=== PATIENT | female | born 1985 | race Caucasian/White ===

== ENCOUNTER 2016-07-06 16:04 | Outpatient (CLI) | payer MEDICAID | END 2016-07-06 16:05 | disposition home or self-care (01) | DX: R07.89 Other chest pain (principal) ==

== ENCOUNTER 2016-08-10 09:57 | Outpatient (CLI) | payer MEDICAID | END 2016-08-10 09:58 | disposition home or self-care (01) | LOC: SC 09:57 | PROVIDERS: ATTEND Nurse Practitioner Family | DX: G47.8 Other sleep disorders (principal); G47.10 Hypersomnia, unspecified; R06.83 Snoring | CPT/HCPCS: 99204; 99212 ==

== ENCOUNTER 2016-09-20 19:29 | Outpatient (CLI) | payer MEDICAID | END 2016-09-20 19:30 | disposition home or self-care (01) | LOC: SC 19:29 | PROVIDERS: ATTEND Internal Medicine Pulmonary Disease | DX: G47.10 Hypersomnia, unspecified (principal); R06.83 Snoring | CPT/HCPCS: 95810 ==

== ENCOUNTER 2017-10-25 11:24 | Outpatient (CLI) | payer BC ==
[2017-10-25 18:01] LABS: HB2 TOTAL 16.6 g/dL; HEMOGLOBIN A1C 0.45 g/dL; HEMOGLOBIN A1C % 4.6 % (4.6-6.2)
[2017-10-25 18:07] LABS: CHOL/HDL RATIO 3.6 (<4.4); CHOLESTEROL 238 mg/dL; GLUCOSE 93 mg/dL (70-100); HDL CHOLESTEROL 66 mg/dL; LDL CHOLESTEROL,CALCULATED 155 mg/dL; LDL/HDL RATIO 2.3 (<4.4); VLDL CHOLESTEROL 17 mg/dL
== END 2017-10-25 11:25 | disposition home or self-care (01) ==
LOC: LAB.F 11:24
PROVIDERS: ATTEND Registered Nurse
DX: Z01.419 Encounter for gynecological examination (general) (routine) without abnormal findings (principal)
CPT/HCPCS: 36415; 80061; 82947; 83036; 83721; 84443

== ENCOUNTER 2019-02-06 13:09 | Outpatient (CLI) | payer OTHER ==
--- NOTE | 2019-02-07 10:41 | XRAY Report ---
Reason: ASTHMA, J45.909 Procedure Date: 02/06/2019 Accession Number: [id number] / [id number] Procedure: XRS - Chest 2 View X-Ray CPT Code: 56655 Final Report FULL RESULT: EXAM: CHEST RADIOGRAPHY EXAM DATE: 02/06/2019 01:22 PM. CLINICAL HISTORY: ASTHMA, J45. 909. COMPARISON: None. TECHNIQUE: 2 views. FINDINGS: Lungs/Pleura: Bilateral central bronchial wall thickening is noted. No superimposed focal airspace consolidation. No pleural effusion or pneumothorax. Mediastinum: Heart and mediastinal contours are unremarkable. Other: None. IMPRESSION: 1. Bilateral central bronchial wall thickening could reflect underlying reactive airways or bronchitis. No evidence of pneumonia. RADIA
== END 2019-02-06 13:10 | disposition home or self-care (01) ==
LOC: DI.S 13:09
PROVIDERS: ATTEND Registered Nurse
DX: J45.909 Unspecified asthma, uncomplicated (principal)
CPT/HCPCS: 71046

== ENCOUNTER 2019-04-23 07:00 | Outpatient (CLI) | payer BC, OTHER ==
[2019-04-23 21:50] LABS: TRICHOMONAS VAGINALIS DNA NEGATIVE (NEGATIVE)
== END 2019-04-23 23:59 | disposition home or self-care (01) ==
LOC: LAB.R 07:00
PROVIDERS: ATTEND Nurse Practitioner Obstetrics & Gynecology
DX: Z11.3 Encounter for screening for infections with a predominantly sexual mode of transmission (principal)
CPT/HCPCS: 87491; 87591; 87661

== ENCOUNTER 2020-05-12 04:04 | Emergency (ER) | payer OTHER ==
--- NOTE | 2020-05-12 04:10 | ED Physician Documentation ---
PD HPI DYSPNEA - Stated complaint Stated Complaint: SOA - History obtained from History obtained from: Patient - History of Present Illness Timing - onset: How many days ago (2) Timing - details: Gradual onset, Waxing and waning Pain level max: 0 Pain level now: 0 Improved by: Rest Worsened by: Exertion, Coughing Associated symptoms: Cough, Wheezing. No: Fever, Chest pain / discomfort, Bilateral edema, Unilateral edema Similar symptoms before: Diagnosis (asthma) Recently seen: Clinic - Additional information Additional information: c/o 1-2 days of gradual onset, gradually worsening dyspnea, wheezing, and productive cough. She says she had similar symptoms approximately 1 year ago and went through two rounds of antibiotics, eventually evaluated by an switch adjuster and diagnosed with asthma. She says the switch adjuster performed allergy tests which also indicated allergy to several environmental allergens. Patient was evaluated at a walk-in clinic yesterday, prescribed an inhaler and a steroid. She has been using the inhaler without adequate improvement. She did not start the steroid yet; she says the pharmacist advised her to wait until the morning, as it might cause insomnia. Patient denies fever, myalgias. Review of Systems Constitutional: denies: Fever, Chills, Myalgias, Sweats Cardiac: denies: Chest pain / pressure, Palpitations, Pedal edema Respiratory: reports: Dyspnea, Cough, Wheezing PD PAST MEDICAL HISTORY - Past Medical History Cardiovascular: None Respiratory: None Endocrine/Autoimmune: None GI: None ACID CONCENTRATOR: None : None HEENT: None Psych: Depression, Anxiety, Bipolar disorder Musculoskeletal: None Derm: None - Past Surgical History Past Surgical History: Yes - Present Medications Home Medications: Ambulatory Orders Medication Instructions Recorded Confirmed Nexplanon 02/06/16 ARIPiprazole [Aripiprazole Odt] 15 mg PO DAILY 05/12/20 05/12/20 Albuterol Sulfate [Proair 2 puffs IH Q4HR PRN 05/12/20 05/12/20 Digihaler] Azithromycin [Zithromax] 250 mg PO DAILY #4 tab 05/12/20 Montelukast Sodium 10 mg PO DAILY 05/12/20 05/12/20 Omeprazole Magnesium 20 mg PO DAILY 05/12/20 05/12/20 - Allergies Allergies/Adverse Reactions: Allergies Allergy/AdvReac Type Severity Reaction Status Date / Time No Known Drug Allergies Allergy Verified 05/12/20 04:18 - Social History Does the pt smoke?: No Smoking Status: Never smoker Does the pt drink ETOH?: Yes Does the pt have substance abuse?: No - Immunizations Immunizations are current?: Yes - POLST Patient has POLST: No PD ED PE NORMAL - Vitals Vital signs reviewed: Yes - General General: Alert and oriented X 3, Well developed/nourished, Other (dyspneic, tachypneic, grossly audible wheezing. able to speak 2-3 words at a time due to dyspnea) - HEENT HEENT: Moist mucous membranes - Neck Neck: Supple, no meningeal sign, No JVD - Cardiac Cardiac: No murmur PD ED PE EXPANDED - Cardiac Cardiac: Tachy, Regular Rhythm - Respiratory Respiratory: Wheezing (inspiratory and expiratory), Decreased breath sounds Results - Vitals Vitals: Vital Signs - 24 hr 05/12/20 05/12/20 05/12/20 04:05 04:21 04:31 Temperature 36.6 C Heart Rate 120 H 115 H 123 H Respiratory 32 H 15 16 Rate Blood Pressure 150/115 H 134/83 H O2 Saturation 96 97 05/12/20 05/12/20 05/12/20 04:44 05:02 05:14 Temperature 36.6 C 36.8 C Heart Rate 101 H 101 H 100 Respiratory 23 22 24 Rate Blood Pressure 137/98 H 113/88 H O2 Saturation 97 97 05/12/20 05/12/20 05/12/20 05:30 06:00 06:20 Temperature 36.7 C 36.7 C 36.6 C Heart Rate 118 H 104 H 103 H Respiratory 21 22 24 Rate Blood Pressure 131/94 H 147/85 H 139/93 H O2 Saturation 96 97 98 Oxygen O2 Source Room air - Labs Labs: Laboratory Tests 05/12/20 05/12/20 05/12/20 04:14 04:14 05:47 WBC 9.5 RBC 4.52 Hgb 15.7 Hct 45.4 MCV 100.4 H MCH 34.7 H MCHC 34.6 RDW 12.1 Plt Count 293 MPV 9.4 Neut # (Auto) 5.8 Lymph # (Auto) 2.2 Aiken # (Auto) 0.6 Eos # (Auto) 0.9 H Baso # (Auto) 0.0 Absolute Nucleated RBC 0.00 Nucleated RBC % 0.0 Sodium 138 Potassium 3.3 L Chloride 105 Carbon Dioxide 22 Anion Gap 11.0 BUN 8 Creatinine 0.9 Estimated GFR (MDRD) 72 L Glucose 107 H Calcium 9.1 Nasal Adenovirus (PCR) NOT DETECTED Nasal B. parapertussis DNA (PCR) NOT DETECTED Nasal Coronavir 229E PCR NOT DETECTED Nasal Coronavir HKU1 PCR NOT DETECTED Nasal Coronavir NL63 PCR NOT DETECTED Nasal Coronavir OC43 PCR NOT DETECTED Nasal Enterovir/Rhinovir PCR NOT DETECTED Nasal Influenza B PCR NOT DETECTED Nasal Influenza A PCR NOT DETECTED Nasal Parainfluen 1 PCR NOT DETECTED Nasal Parainfluen 2 PCR NOT DETECTED Nasal Parainfluen 3 PCR NOT DETECTED Nasal Parainfluen 4 PCR NOT DETECTED Nasal RSV (PCR) NOT DETECTED Nasal B.pertussis DNA PCR NOT DETECTED Nasal C.pneumoniae (PCR) NOT DETECTED Shane Human Metapneumo PCR NOT DETECTED Nasal M.pneumoniae (PCR) NOT DETECTED Nasal SARS-CoV-2 (PCR) NOT DETECTED - Rads (name of study) chest xray Radiology: Prelim report reviewed, See rad report PD MEDICAL DECISION MAKING - ED course Complexity details: reviewed results, re-evaluated patient, considered differential, d/w patient ED course: patient reports substantial improvement after duoneb. also given IV solu-medrol 125mg. She no longer has the wheezing that was audible when I was standing at bedside. On auscultation, she has persistent expiratory wheezing, mild inspiratory wheezing, but improved aeration (breath sounds are no longer distant). She is able to speak in full sentences without difficulty. She is given a second neb treatment (albuterol) and reported further improvement with this although no noticeable change on auscultation. CXR interpreted by radiologist as interstitial RLL infiltrate and thus she is also given IV rocephin and PO zithromax with rx for zithromax. She is comfortable with d/c home. Given a work note and instructed to take the steroids that had already been prescribed starting today around mid-day or early afternoon. Departure - Departure Disposition: Home, Self Care Clinical Impression: Pneumonia Qualifiers: Pneumonia type: due to unspecified organism Laterality: right Lung location: lower lobe of lung Qualified Code(s): J18.9 - Pneumonia, unspecified organism Asthma attack Qualifiers: Asthma severity: moderate Asthma persistence: unspecified Qualified Code(s): J45.901 - Unspecified asthma with (acute) exacerbation Condition: Good Instructions: ED Reactive Airway Disease, ED Pneumonia Adult Prescriptions: Azithromycin [Zithromax] 250 mg PO DAILY #4 tab Comments: Take the steroid (which you have indicated was already prescribed) starting with the first dose to be taken around noon today (then as indicated by the instructions on the prescription label). Take your next dose of azithromycin (the antibiotic prescribed from this emergency department) tomorrow morning (you were given an initial dose in the emergency department). Forms: Activity restrictions Discharge Date/Time: 05/12/20 06:22
[2020-05-12] MEDS ORDERED: IPRATROPIUM/ALBUTEROL 3 ML NEB INH STA (04:15)
[2020-05-12] MEDS ORDERED: methylPREDNISolone SUCCINATE 125 MG/2 ML VIAL IVP STA (04:16)
[2020-05-12 04:31] LABS: BASOPHILS % (AUTO) 0.2 %; EOSINOPHILS # (AUTO) 0.9 10^3/uL (0.0-0.7); EOSINOPHILS % (AUTO) 9.4 %; HGB - HEMOGLOBIN 15.7 g/dL (12.0-16.0); LYMPHOCYTES # (AUTO) 2.2 10^3/uL (1.5-3.5); LYMPHOCYTES % (AUTO) 22.8 %; MEAN CORPUSCULAR HEMOGLOBIN 34.7 pg (27.0-31.0); MEAN CORPUSCULAR HGB CONC 34.6 g/dL (32.0-36.0); MEAN CORPUSCULAR VOLUME 100.4 fL (81.0-99.0); MEAN PLATELET VOLUME 9.4 fL (7.9-10.8); MONOCYTES # (AUTO) 0.6 10^3/uL (0.0-1.0); MONOCYTES % (AUTO) 6.4 %; NEUTROPHILS # (AUTO) 5.8 10^3/uL (1.5-6.6); NEUTROPHILS % (AUTO) 61.1 %; PLT - PLATELET COUNT 293 10^3/uL (130-450); RED BLOOD COUNT 4.52 10^6/uL (4.20-5.40); RED CELL DISTRIBUTION WIDTH 12.1 % (12.0-15.0); WHITE BLOOD COUNT 9.5 x10^3/uL (4.8-10.8)
[2020-05-12 04:42] LABS: CALCIUM 9.1 mg/dL (8.5-10.3); CREATININE 0.9 mg/dL (0.4-1.0)
[2020-05-12] MEDS ORDERED: ALBUTEROL NEB 2.5 MG/3 ML INH STA (04:55)
[2020-05-12] MEDS ORDERED: cefTRIAXone 1 GM in SODIUM CHLORIDE 0.9% MINIBAG 100 ML IV STA (05:28)
[2020-05-12] MEDS ORDERED: AZITHROMYCIN 250 MG TABLET PO STA (05:28)
[2020-05-12] MEDS ORDERED: cefTRIAXone 1 GM VIAL ONE (05:42)
[2020-05-12 06:22] VITALS: BP 139/93
[2020-05-12 06:49] LABS: C. PNEUMONIAE- RESP PCR PANEL NOT DETECTED
--- NOTE | 2020-05-12 07:04 | XRAY Report ---
PROCEDURE: Chest 1 View X-Ray INDICATIONS: dyspnea TECHNIQUE: One view of the chest was acquired. COMPARISON: 02/06/2019 FINDINGS: Surgical changes and devices: None. Lungs and pleura: No pleural effusions or pneumothorax. Increased opacification in the right lung ba se. Mediastinum: Mediastinal contours appear normal. Heart size is normal. Bones and chest wall: No suspicious bony lesions. Overlying soft tissues appear unremarkable. IMPRESSION: Right basilar pneumonia versus atelectasis. Reviewed by: Santa Collado MD, PhD on 05/12/2020 7:03 AM PST Approved by: Santa Collado MD, PhD on 05/12/2020 7:03 AM [facility] Station ID: [id number]
== END 2020-05-12 06:22 | disposition home or self-care (01) ==
LOC: ED 04:04
DX: J18.9 Pneumonia, unspecified organism (principal); J45.901 Unspecified asthma with (acute) exacerbation; Z20.822 Contact with and (suspected) exposure to COVID-19
CPT/HCPCS: 0202U; 36415; 71045; 80048; 85025; 94640; 96365; 96375; 99284; A9270

== ENCOUNTER 2020-06-19 17:42 | Outpatient (CLI) | payer OTHER | END 2020-06-19 17:43 | disposition home or self-care (01) | LOC: COV 17:42 | PROVIDERS: ATTEND Family Medicine | DX: Z20.822 Contact with and (suspected) exposure to COVID-19 (principal) ==

== ENCOUNTER 2020-09-26 08:00 | Outpatient (CLI) | payer OTHER | END 2020-09-26 23:59 | disposition home or self-care (01) | LOC: LAB.S 08:00 | PROVIDERS: ATTEND Emergency Medicine | DX: Z20.822 Contact with and (suspected) exposure to COVID-19 (principal) ==

== ENCOUNTER 2022-06-25 09:58 | Outpatient (CLI) | payer OTHER ==
[2022-06-25 10:40] LABS: ESTIMATED AVERAGE GLUCOSE 94 mg/dL (70-100); HEMOGLOBIN A1c% 4.9 % (4.27-6.07)
== END 2022-06-25 09:59 | disposition home or self-care (01) ==
LOC: LAB 09:58
PROVIDERS: ATTEND Nurse Practitioner
DX: E66.01 Morbid (severe) obesity due to excess calories (principal)
CPT/HCPCS: 36415; 83036

== ENCOUNTER 2022-10-14 14:01 | Outpatient (CLI) | payer OTHER ==
--- NOTE | 2022-10-14 14:50 | Sleep Patient Instructions ---
Sleep Center Visit Summary - Patient Visit Information Reason for Visit: Initial consult - Patient Instructions Instructions Attached: Sleep Study, Sleep Clinic Visit, Sleep Study Home Monitor Additional Instructions: You will be completing a sleep study, either an in-lab polysomnography (PSG) or home sleep study (HST). You will follow-up in the sleep care office after the sleep study is completed to hear the results and talk about therapy, if needed. You will be called by our office staff to schedule this appointment, but you may contact us with any questions. - Clinic Information Contact: [facility] [address] [place] [id number] [email or web address] T: [phone]
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
[2022-10-14 15:07] VITALS: BP 144/92
== END 2022-10-14 14:02 | disposition home or self-care (01) ==
LOC: SC 14:01
PROVIDERS: ATTEND Nurse Practitioner Family
DX: G47.10 Hypersomnia, unspecified (principal); R53.83 Other fatigue; R06.83 Snoring; G47.8 Other sleep disorders; R06.81 Apnea, not elsewhere classified; F32.A Depression, unspecified; E66.01 Morbid (severe) obesity due to excess calories; Z68.43 Body mass index [BMI] 50.0-59.9, adult; Z87.891 Personal history of nicotine dependence
CPT/HCPCS: 99203; 99212